=== PATIENT | female | born 1970 | race Caucasian/White ===

== ENCOUNTER → 2017-04-19 | Outpatient (CLI) | payer BC ==
[2017-04-19 07:51] LABS: HEMOGLOBIN A1C 5.91 % (4.2-6.0)
[2017-04-19 08:00] LABS: CHOL/HDL RATIO 4.14 RATIO (0-4.0); LDL CHOLESTEROL,CALCULATED 48.2 mg/dL
== END ==
LOC: LAB 07:16
PROVIDERS: ATTEND Pediatrics Pediatric Endocrinology
DX: E03.9 Hypothyroidism, unspecified (principal); R63.5 Abnormal weight gain; E55.9 Vitamin D deficiency, unspecified; Z86.32 Personal history of gestational diabetes
CPT/HCPCS: 36415; 80061; 82306; 83036; 84439; 84443; 84481

== ENCOUNTER 2017-06-30 11:40 | Inpatient (IN) ==
--- NOTE | 2017-06-30 12:20 | PDOC ---
Abdomen/Flank HPI - General Chief Complaint: Abdomen Pain Stated Complaint: left lower quad pain Date Seen by Provider: 06/30/17 Time Seen by Provider: 12:10 Source: POSITIVE: Patient Exam Limitations: POSITIVE: No limitations Nurse's Notes Reviewed & Considered: Yes - History of Present Illness Initial Comments: Patient comes in today with left lower quadrant abdominal pain. Patient has a history of repeated episodes of diverticulitis in her left lower quadrant requiring antibiotics. On Sunday she began to develop pain in her left lower quadrant and by Sunday she developed nausea but has had no vomiting and no diarrhea. Last night she developed chills and a subjective fever. Her pain has intensified and she sought evaluation at the medical office building today. The [place] he directed her to the emergency department. She has an associated headache, denies sore throat, denies chest pain, no shortness of breath, no cough, she does have nausea but no vomiting and no diarrhea. She denies any urinary symptoms with no hematuria or dysuria, no increased frequency of urination. She does have complaints of left lower quadrant abdominal pain and abdominal distention. She denies any rashes. She states she only wants antibiotics and was reluctant to agree to an IV, lab draw, or CT scan. I explained to her the need for these investigative adjuncts. She has agreed to proceed. Body Location Affected: REPORTS: Abdomen (Left lower quadrant) Timing: REPORTS: Gradual, Getting Worse Duration: <1 week Severity: Severe Quality: REPORTS: Cramping, "Pain", Sharpness, Stabbing, Throbbing, Tenderness Abdominal Pain Onset Location: REPORTS: RLQ Abdominal Pain Radiation: REPORTS: No radiation Context: REPORTS: None Modifying Factors: improves with: Nothing Associated Symptoms: REPORTS: Chills, Fever (Subjective), Nausea Similar Symptoms Previously: Yes Recent Care Received: REPORTS: Denies Any Prior Injuries Related to Current Complaint?: No - Patient Home Medications Home Medications: Home Medications Cholecalciferol (Vitamin D3) [Vitamin D3] 1 tab PO QD tab 04/17/16 Magnesium Oxide [Magnesium] 1,000 mg PO QD cap 04/17/16 Estradiol 1 tab PO DAILY #30 tab 05/01/17 Thyroid,Pork [[place] Thyroid] 1 tab PO QD #27 tab 05/02/17 Thyroid,Pork [[place] Thyroid] 1 tab PO QD #30 tab 05/02/17 Thyroid,Pork [[place] Thyroid] 1 tab PO QD #27 tab 05/21/17 Thyroid,Pork [[place] Thyroid] 1 tab PO QD #30 tab 05/21/17 - Patient Allergies Allergies/Adverse Reactions: Allergies 3 Allergy/AdvReac Type Severity Reaction Status Date / Time No Known Allergies Allergy Unverified 01/13/17 10:38 Past Medical History - heen HEENT History: Denies History Cardiovascular History: Denies History Respiratory History: Denies History Gastrointestinal History: Diverticulitis, Peptic Ulcer Disease Additional Gastrointestinal History: ABDOMINAL PAIN Genitourinary History: Recurrent UTI Additional Genitourinary History: NONE FOR 5 MONTHS OR MORE/UTI Endocrine History: Hypothyroidism Musculoskeletal History: Denies History Prosthesis or Implant: No Neurological History: Migraines Additional Neurological History: USUALLY TAKES OTC Blood Disorders: Denies History Psychiatric History: Depression History of Sexually Transmitted Diseases: No Cancer History: Denies History In Past Year Been Physically Harmed or Verbally Threatened: No History of MDRO: No History of Other Communicable Diseases: No Tobacco Use: Former Smoker Alcohol Use: Rarely In the Past 12 Months, Have Used or Abuse Any Substance: None Previous Surgical History: Yes Type / Date of Surgery: HYST/ TONSILLECTOMY/ FOOT SX Anesthesia Reactions: No Malignant Hyperthermia: No Significant Family History: No pertinent family hx Additional Family History: MOTHER HAD CERVICAL CA, PERITONEAL CA, FATHER HAD CHF ROS - Limitations ROS Limitations: No Limitations Constitution: REPORTS: Chills, Fever (Subjective) Cardiovascular: REPORTS: Denies Cardiac Symptoms Respiratory: REPORTS: Denies Resp Symptoms Neurological: REPORTS: Headache Gastrointestinal: REPORTS: Abdominal Pain, Nausea Endocrine: REPORTS: Denies Symptoms Musculoskeletal: REPORTS: Denies MS Symptoms Genitourinary: REPORTS: Denies Symptoms Eyes: REPORTS: Denies Symptoms ENT: REPORTS: Denies Symptoms Skin: REPORTS: Denies Skin Symptoms Lympathic: REPORTS: Denies Lympathic Symptoms Immunologic: POSITIVE: Denies Symptoms Psychiatric: POSITIVE: Denies Psych Symptoms Abdominal/Flank Pain PE - General Appearance General Appearance: POSITIVE: Alert, Cooperative, No Acute Distress, No Evidence of Trauma - HEENT HEENT: POSITIVE: Head Inspection Nml, Eyes Inspection Nml, Ears Inspection Nml, Nose Inspection Nml, Oral/Dental Inspect. Nml, Pharynx Inspect. Nml, PERRL, EOMI - Neck Neck: POSITIVE: Normal Inspection, No Apparent Injury - Respiratory Respiratory: POSITIVE: No Respiratory Distress, Breath Sounds Normal, Chest Non- Tender - Cardiovascular Cardiovascular: POSITIVE: Regular Rate and Rhythm, Heart Sounds Normal, Strong Pulses Peripheral Pulses: Radial (R): 4+ - Chest Chest: POSITIVE: Non Tender - Abdomen Abdomen: Soft: (All Quadrants), Denies Tenderness: (RUQ), (LUQ), (RLQ), No Splenomegaly: (All Quadrants), No Hepatomegaly: (All Quadrants), No Guarding: ( RLQ), (LUQ), (RUQ), No Rebound: (All Quadrants), No Palpable Pulse: (All Quadrants), No Palpabale Mass: (All Quadrants), No Distention: (LUQ), (RUQ), No Rigidity: (All Quadrants), Tenderness Noted: (LLQ), Hypoactive Bowel Sounds: ( All Quadrants), Distention: (LLQ), (RLQ), Guarding: (LLQ) - Back Back: POSITIVE: Normal Inspection - Skin Skin: POSITIVE: Intact, Normal For Race, Warm, Dry, No Rash - Extremities Extremity: Non-Tender: (All Extremities), Normal ROM: (All Extremities), Normal Inspection: (All Extremities), Pelvis Stable: (All Extremities) - Neurological Neurological: POSITIVE: Oriented X3, plate painter Normal As Tested, Motor Normal, Sensation Normal, 5, 6 - Psychological Psychiatric: POSITIVE: Affect Appropriate, Mood Appropriate Abdomen Progress - Results Reviewed by me Xrays/CTs/US Reviewed by me: Yes Discussed with Radiologist: Yes Lab Results Reviewed by Me: Yes CBC and BMP: 06/30/17 12:20 06/30/17 12:20 - Patient's Progress Pain Medication Addressed: POSITIVE: Yes Re-examine Time: 15:05 Status: POSITIVE: Improved - Consult Consult (If Yes, Name of Consulting MD & Time Called): Yes (Dr. Walton, 15:00 hrs) Consulting MD will see pt:: POSITIVE: [facility] [place] Admit Counseled: POSITIVE: Patient, RE: Lab Results, RE: Radiology Results, RE: DX Patient Care Time - Estimated PCT Patient Care Time (In Minutes): 45 Vital Signs - Recent Vital Signs Vital Signs: Vital Signs (Last 8 hours) Temp Pulse Resp BP Pulse Ox 06/30/17 12:01 98.1 F 104 H 16 123/99 95 - VS Reviewed Vital Signs Reviewed: Yes Discharge Clinical Impression: Diverticulitis Discharge Disposition: Admit to Observation Condition: Stable Patient Instructions Given at Discharge: Diverticulitis (ED) Follow Up With: BETINA SAENZ [Primary Care Provider] - Date Decision to Admit to Inpatient: 06/30/17 Time Decision to Admit to Inpatient: 15:06
[2017-06-30] MEDS ORDERED: MORPHINE SULFATE 4 MG/1 ML IVP ONE (12:21)
[2017-06-30] MEDS ORDERED: ONDANSETRON 4 MG/2 ML VIAL IVP ONE (12:21)
[2017-06-30] MEDS ORDERED: Sodium Chloride 0.9% 1,000 ML PRIMARY IV ONE (12:21)
[2017-06-30 12:32] LABS: BASOPHILS # (AUTO) 0.03 10*3/UL; BASOPHILS % (AUTO) 0.2 % (0-1); EOSINOPHILS # (AUTO) 0.03 10*3/UL; EOSINOPHILS % (AUTO) 0.2 % (0-8); Hemoglobin [HGB] 14.7 g/dL (12.0-16.0); LYMPHOCYTES # (AUTO) 2.06 10*3/uL; MEAN CORPUSCULAR HEMOGLOBIN 31.3 PG (27-31); MEAN CORPUSCULAR HGB CONC 34.2 g/dL (33-37); MEAN CORPUSCULAR VOLUME 91.5 FL (81-99); MEAN PLATELET VOLUME 10.2 FL (7.4-12.2); MONOCYTES # (AUTO) 1.25 10*3/UL (0.3-0.8); MONOCYTES % (AUTO) 8.2 % (5-15); NEUTROPHILS # (AUTO) 11.75 10*3/UL; NEUTROPHILS % (AUTO) 77.3 % (50-80)
[2017-06-30 12:35] LABS: PLATELET MORPHOLOGY COMMENT NORMAL MORPHOLOGY (NORM); RBC MORPHOLOGY COMMENT NORMAL MORPHOLOGY (NORM); WBC MORPHOLOGY COMMENT NORMAL MORPHOLOGY (NORM)
[2017-06-30 12:43] LABS: BLOOD UREA NITROGEN 8 mg/dL (7-22); BUN/CREATININE RATIO 11.42 (6-20); MAGNESIUM 1.9 mg/dL (1.6-2.4); SERUM ALBUMIN 4.3 g/dL (3.5-4.8)
[2017-06-30] MEDS ORDERED: metroNIDAZOLE 500mg (Premix) 500 MG/100 ML BAG IV ONE (14:19)
[2017-06-30] MEDS ORDERED: Levofloxacin (Premix) 750 MG/150 ML PIGGYBACK IV ONE (14:20)
--- NOTE | 2017-06-30 14:53 | DI ---
EXAM: CT ABDOMEN PELVIS WITH CONTRAST INDICATION: Left lower quadrant pain and guarding TECHNIQUE: Multiple, contiguous 3 mm axial cuts of the abdomen and pelvis are obtained from the lung bases to the ischial tuberosities. 75 cc [id number] Intravenous contrast administered. Sagittal and coronal reformatted images are available. COMPARISON: CT abdomen pelvis 02/16/15 FINDINGS: Lung bases are clear. Liver: liver is unremarkable. Spleen: spleen is unremarkable. Pancreas: pancreas is unremarkable. Gallbladder: Gallbladder is unremarkable by CT exam. Adrenal glands: adrenal glands are unremarkable. Kidneys: kidneys are unremarkable. No urinary tract stones or hydronephrosis or perinephric inflammatory changes. GI tract: Diverticulosis of the descending and sigmoid colon. There is pericolonic inflammatory changes at the descending colon and proximal sigmoid with thickened wall. Additional few scattered diverticula of the transverse and right colon. Trace free fluid. No free air or abscess or bowel obstruction. Appendix: Appendix normal caliber. Urinary bladder: urinary bladder is unremarkable. Abdominal aorta: Abdominal aorta normal caliber. Retroperitoneum. No adenopathy. Osseous structures: No acute osseous abnormality. L5/S1 degenerative disc space narrowing and vacuum disc phenomenon with endplate degenerative osteophyte formation. Mild facet arthropathy L4/L5 and L5/S1. L4/L5 mild to moderate degenerative disc space narrowing. Hysterectomy. No adnexal lesions. IMPRESSION: 1. Diverticulitis of the descending and proximal sigmoid colon with trace adjacent free fluid. No free air or abscess or bowel obstruction. 2. Hysterectomy. 3. Degenerative changes lower lumbar spine at L4/L5 and L5/S1 level. No acute osseous abnormality. 4. Additional scattered diverticula in the transverse and ascending colon noted.
--- NOTE | 2017-06-30 15:06 | PDOC ---
HPI - History of Present Illness History of Present Illness: This very nice 47-year-old female with past medical history significant for hypothyroidism. Patient also has a history significant for repeated the house of diverticulitis treated the as an outpatient with antibiotics. Last Sunday he started developing some pain in the left lower quadrant by Sunday she had some nausea but no vomiting. Last evening she developed some chills and fever according to the patient with increased pain was seen at the outpatient clinic who sent her to the emergency room CT scan revealed the diverticulitis. Patient agreed to be admitted to the hospital Past Medical History Medical History: Hypothyroidism, multiple episodes of diverticulitis Tobacco Use: Former Smoker In the Past 12 Months, Have Used or Abuse Any of the Following Substance: None Alcohol Use: None Medication / Allergies Home Medications: Home Medications Medication Instructions Recorded Confirmed Type Cholecalciferol (Vitamin D3) 1 tab PO QD tab 04/17/16 History [Vitamin D3] Magnesium Oxide [Magnesium] 1,000 mg PO QD cap 04/17/16 History Estradiol 1 tab PO DAILY #30 tab 05/01/17 Rx Thyroid,Pork [[place] Thyroid] 1 tab PO QD #27 tab 05/02/17 Clinic Thyroid,Pork [[place] Thyroid] 1 tab PO QD #30 tab 05/02/17 Clinic Thyroid,Pork [[place] Thyroid] 1 tab PO QD #27 tab 05/21/17 Clinic Thyroid,Pork [[place] Thyroid] 1 tab PO QD #30 tab 05/21/17 Clinic Allergies/Adverse Reactions: Allergies 3 Allergy/AdvReac Type Severity Reaction Status Date / Time No Known Allergies Allergy Unverified 01/13/17 10:38 Review of Systems - Review of Systems All Systems: Reviewed & No Additional Complaints Except as Stated - Respiratory Respiratory: DENIES: Negative System Review, Cough, Sputum, Dyspnea At Rest, Dyspnea with Exertion, Pleuritic Pain, Hemoptysis, Wheezing, Other, See HPI - Cardiovascular Cardiovascular: DENIES: Negative System Review, Chest Pain, Edema, Syncope, Palpitations, Orthopnea, Paroxysmal Nocturnal Dyspnea, Other, See HPI - Gastrointestinal Gastrointestinal / Abdominal: REPORTS: Nausea, Vomiting, Abdominal Pain Exam - Vitals Vital Signs: Vital Signs Temperature 98.1 F Pulse Rate [Pulse Oximeter] 104 Respiratory Rate 16 Blood Pressure [Left Arm] 123/99 Pulse Ox 95 Oxygen Delivery Method Room Air Height 5 ft 8 in Weight 205 lb - General General Appearance: No Acute Distress, Cooperative - Head Head Exam: Normal Inspection - Eye Eye Exam: POSITIVE: Normal Appearance - Respiratory Respiratory Exam: POSITIVE: Clear to Auscultation - Bilaterally, Breathing Non Labored, Normal To Percussion - Cardiovascular Cardiovascular Exam: POSITIVE: RRR, No Murmur, No Clicks - GI/Abdominal Additional GI/Abdominal Exam Details: Left lower quadrant pain no guarding or rebound - Extremities Extremities Exam: POSITIVE: No Clubbing Present, No Edema Present, No Cyanosis Present Results - Labs CBC and BMP: 06/30/17 12:20 06/30/17 12:20 Assessment and Plan - Patient Problems (1) Diverticulitis Current Visit: Yes Status: Acute Comment: Diverticulitis on CT scan admit the patient start IV Invanz Dr. Gonsales was consult with by ER physician is he did not think that he needed to be involved in the case at this time and just the to call him if any complications Code(s): K57.92 - Diverticulitis of intestine, part unspecified, without perforation or abscess without bleeding
[2017-06-30] MEDS ORDERED: ONDANSETRON 4 MG/2 ML VIAL IVP PRN (16:05)
[2017-06-30] MEDS ORDERED: NORMAL SALINE 10 ML SYRINGE FLUSH IVP PRN (16:05)
[2017-06-30] MEDS ORDERED: MAGNESIUM OXIDE 1000 MG PO SCH (16:05)
[2017-06-30] MEDS ORDERED: CHOLECALCIFEROL 1000 IU TABLET PO SCH (16:05)
[2017-06-30] MEDS ORDERED: LIDOCAINE W/ SODIUM BICARB 0.5 ML SYR SUBD PRN (16:05)
[2017-06-30] MEDS ORDERED: MORPHINE SULFATE 2 MG/1 ML IVP PRN (16:05)
[2017-06-30] MEDS ORDERED: MAG HYDROX/AL HYDROX/SIMETH 30 ML SUSP PO PRN (16:05)
[2017-06-30] MEDS: 1/2NS + 20mEq KCL 1,000 ML PRIMARY IV SCH (17:35)
[2017-06-30] MEDS: Ertapenem Inj 1 GM in Sodium Chloride 0.9% 100 ML IV SCH (21:08)
[2017-06-30] MEDS: HEPARIN 5000 UNIT/1 ML SUBCUT SCH (21:09)
[2017-06-30] MEDS: ACETAMINOPHEN 325 MG TABLET PO PRN (22:13)
[2017-07-01] MEDS: 1/2NS + 20mEq KCL 1,000 ML PRIMARY IV SCH ×3 (01:40→20:51)
[2017-07-01] MEDS: HEPARIN 5000 UNIT/1 ML SUBCUT SCH ×3 (04:28→21:04)
[2017-07-01 05:32] LABS: BASOPHILS # (AUTO) 0.02 10*3/UL; BASOPHILS % (AUTO) 0.2 % (0-1); EOSINOPHILS # (AUTO) 0.05 10*3/UL; EOSINOPHILS % (AUTO) 0.4 % (0-8); Hematocrit [HCT] 39.1 % (37.0-47.0); Hemoglobin [HGB] 12.8 g/dL (12.0-16.0); LYMPHOCYTES # (AUTO) 2.34 10*3/uL; MEAN CORPUSCULAR HEMOGLOBIN 30.2 PG (27-31); MEAN CORPUSCULAR HGB CONC 32.7 g/dL (33-37); MEAN CORPUSCULAR VOLUME 92.2 FL (81-99); MEAN PLATELET VOLUME 10.7 FL (7.4-12.2); MONOCYTES # (AUTO) 1.13 10*3/UL (0.3-0.8); MONOCYTES % (AUTO) 9.8 % (5-15); NEUTROPHILS # (AUTO) 7.96 10*3/UL; RED BLOOD COUNT 4.24 10^6/uL (4.20-5.40)
[2017-07-01 05:34] LABS: PLATELET MORPHOLOGY COMMENT NORMAL MORPHOLOGY (NORM); RBC MORPHOLOGY COMMENT NORMAL MORPHOLOGY (NORM); WBC MORPHOLOGY COMMENT NORMAL MORPHOLOGY (NORM)
[2017-07-01 05:41] LABS: BLOOD UREA NITROGEN 6 mg/dL (7-22); BUN/CREATININE RATIO 8.57 (6-20); LIPASE 41 IU/L (23-300); SERUM ALBUMIN 3.6 g/dL (3.5-4.8)
[2017-07-01] MEDS: THYROID PORK 90 MG PO SCH (07:48)
[2017-07-01] MEDS ORDERED: ESTRADIOL PO SCH (09:00)
[2017-07-01] MEDS: CHOLECALCIFEROL 1000 IU TABLET PO SCH (09:05)
[2017-07-01] MEDS: ESTRADIOL 1 MG PO SCH (09:06)
[2017-07-01] MEDS: MAGNESIUM OXIDE 1000 MG PO SCH (09:06)
[2017-07-01] MEDS: ACETAMINOPHEN 325 MG TABLET PO PRN (13:32)
[2017-07-01] MEDS ORDERED: KETOROLAC 15 MG/1 ML VIAL IVP PRN (14:40)
--- NOTE | 2017-07-01 17:45 | PDOC(PROG) ---
Date and Time of Service: 07/01/2017, 1741 Interval History: Patient seen and evaluated earlier today. Abdominal pain significantly improved. Mostly located in the left lower quadrant and above the bladder. No nausea or vomiting, and tolerating clear liquids thus far. No chest pain and no shortness of breath. Objective : Data - Labs CBC and BMP: 07/01/17 04:30 07/01/17 04:30 Objective : Exam - General General Appearance: No Acute Distress, Cooperative Additional General Exam Details: Vital Signs - Last Taken Temperature 98 F 07/01/17 16:41 Pulse Rate 72 07/01/17 16:41 Respiratory Rate 17 07/01/17 16:41 Blood Pressure 119/68 07/01/17 16:41 Pulse Ox 91 07/01/17 16:41 - Eye Eye Exam: No Scleral Icterus - ENT ENT Exam: Mucous Membranes Moist - Respiratory Respiratory Exam: Clear to Auscultation - Bilaterally, Breathing Non Labored - Cardiovascular Cardiovascular Exam: RRR, No Murmur, No Clicks, No Gallops, No Rubs, No JVD - GI/Abdominal GI/Abdominal Exam: Normal Bowel Sounds, Non Distended, Soft Additional GI/Abdominal Exam Details: Left lower quadrant tenderness to palpation - Extremities Extremities Exam: No Clubbing Present, No Edema Present, No Cyanosis Present - Neurological Neurological Exam: Alert, Oriented x 3, No Facial Droop, Speech Intact / Clear, Moves All Extremities Equally - Psychiatric Psychiatric Exam: Normal Affect, Normal Mood Assessment and Plan - Patient Problems (1) Diverticulitis Current Visit: Yes Status: Acute Code(s): K57.92 - Diverticulitis of intestine, part unspecified, without perforation or abscess without bleeding Qualifiers: Diverticulitis site: large intestine Diverticulitis bleeding: without bleeding Diverticulitis complication: without perforation or abscess Qualified Code(s): K57.32 - Diverticulitis of large intestine without perforation or abscess without bleeding (2) Hypothyroidism Current Visit: Yes Status: Acute Code(s): E03.9 - Hypothyroidism, unspecified Qualifiers: Hypothyroidism type: acquired Qualified Code(s): E03.9 - Hypothyroidism, unspecified - Assessment / Plan Additional Assessment/Plan Details: Continue antibiotics, Invanz, day #2. Consider Augmentin by mouth tomorrow if patient still tolerating diet and pain improved. Given continued left lower quadrant pain, albeit better, I think the benefit of remaining on a clear liquid diet probably outweighs the risk of advancing it at this point. Continue IV fluids, if patient feels better tomorrow, advance diet tomorrow. Check CBC in the morning. I strongly recommended that the patient see a surgeon outpatient to consider colonoscopy to help stage and plan for any elective procedures down the road to prevent diverticulitis in the future.
[2017-07-01] MEDS: Ertapenem Inj 1 GM in Sodium Chloride 0.9% 100 ML IV SCH (20:52)
[2017-07-02] MEDS: THYROID PORK 90 MG PO SCH ×2 (04:30→06:31)
[2017-07-02] MEDS: HEPARIN 5000 UNIT/1 ML SUBCUT SCH (04:50)
[2017-07-02] MEDS: 1/2NS + 20mEq KCL 1,000 ML PRIMARY IV SCH (04:51)
[2017-07-02 05:41] LABS: BASOPHILS # (AUTO) 0.02 10*3/UL; BASOPHILS % (AUTO) 0.2 % (0-1); EOSINOPHILS # (AUTO) 0.07 10*3/UL; EOSINOPHILS % (AUTO) 0.8 % (0-8); Hemoglobin [HGB] 13.3 g/dL (12.0-16.0); LYMPHOCYTES # (AUTO) 1.93 10*3/uL; MEAN CORPUSCULAR HEMOGLOBIN 30.6 PG (27-31); MEAN CORPUSCULAR HGB CONC 33.3 g/dL (33-37); MEAN PLATELET VOLUME 10.5 FL (7.4-12.2); MONOCYTES # (AUTO) 0.66 10*3/UL (0.3-0.8); MONOCYTES % (AUTO) 7.3 % (5-15); NEUTROPHILS % (AUTO) 70.1 % (50-80); RED BLOOD COUNT 4.35 10^6/uL (4.20-5.40)
[2017-07-02 05:53] LABS: PLATELET MORPHOLOGY COMMENT NORMAL MORPHOLOGY (NORM); RBC MORPHOLOGY COMMENT NORMAL MORPHOLOGY (NORM); WBC MORPHOLOGY COMMENT NORMAL MORPHOLOGY (NORM)
[2017-07-02] MEDS: CHOLECALCIFEROL 1000 IU TABLET PO SCH (08:46)
[2017-07-02] MEDS: MAGNESIUM OXIDE 1000 MG PO SCH (08:46)
[2017-07-02] MEDS: ESTRADIOL 1 MG PO SCH (08:47)
[2017-07-02] MEDS ORDERED: Ertapenem Inj 0.5 GM in Sodium Chloride 0.9% 100 ML IV ONE (11:23)
[2017-07-02 11:31] VITALS: BP 131/75; RESP 18; TEMP 98.2; O2SAT 96
--- NOTE | 2017-07-02 11:44 | DCSUMMARY ---
Hospitalization Summary Admit Date: 06/30/17 Discharge Date: 07/02/17 Primary Diagnosis:: diverticulitis Hospital Course: This 47-year-old female who came in with abdominal pain of fairly acute onset, accompanied with nausea and CT scan showed evidence of diverticulitis. Patient is a prior diverticular bouts but has been fairly noncompliant terms of her follow-up for colonoscopy post diverticular infections in the past. The patient was admitted, after dose of Levaquin and Flagyl in the emergency room, placed on Invanz. She has had 3 doses of Invanz prior to discharge. Her abdominal pain resolved and her diet was able to be advanced to a regular diet. Her pain has significantly resolved. She is not requiring opiates for her pain. She denies any chest pain, short is breath, vomiting, and states that her abdominal pain is significantly better on the date of discharge. We did speak with surgery who will see patient in the clinic for follow-up. Other medical issues did not cause problems during hospital stay. Assessment and Plan: 1. As per discharge assessments noted 2. Disposition: Patient is discharged home. 3. Condition on discharge, stable and improved. 4. Diet: regular diet 5. Activities: resume normal activities 6. Follow-Up: 1. See Dorota Jacobs in 1 week for recheck 2. See Dr. Gonsales in 2 weeks to recheck diverticulitis. 7. Medications at the Time of Discharge: Home Medications Medication Instructions Recorded Confirmed Type Cholecalciferol (Vitamin D3) 1 tab PO QD tab 04/17/16 07/01/17 History [Vitamin D3] Magnesium Oxide [Magnesium] 1,000 mg PO QD cap 04/17/16 07/01/17 History Estradiol 1 tab PO DAILY #30 tab 05/01/17 07/01/17 Rx Thyroid,Pork [[place] Thyroid] 1 tab PO QD #27 tab 05/02/17 Clinic Thyroid,Pork [[place] Thyroid] 1 tab PO QD #30 tab 05/02/17 Clinic Thyroid,Pork [[place] Thyroid] 1 tab PO QD #27 tab 05/21/17 07/01/17 Clinic Thyroid,Pork [[place] Thyroid] 1 tab PO QD #30 tab 05/21/17 07/01/17 Clinic Amoxicillin/Potassium Clav 1 ea PO BID #14 tab 07/02/17 Rx [Augmentin 875-125 Tablet] 8. Time, care, counseling and coordination of care for this discharge is less than 30 minutes. Exam - Vitals Vital Signs: Vital Signs Temperature 98.2 F Temperature Source Temporal Artery Scan Pulse Rate [Apical] 84 Pulse Rate [Pulse Oximeter] 80 Respiratory Rate 18 Blood Pressure [Right Arm] 131/75 Blood Pressure [Left Arm] 140/81 Pulse Ox 96 Oxygen Delivery Method Room Air Height 5 ft 8 in Weight 216 lb - General General Appearance: No Acute Distress, Cooperative - Eye Eye Exam: POSITIVE: No Scleral Icterus - ENT ENT Exam: POSITIVE: Mucous Membranes Moist - Respiratory Respiratory Exam: POSITIVE: Clear to Auscultation - Bilaterally, Breathing Non Labored - Cardiovascular Cardiovascular Exam: POSITIVE: RRR, No Murmur, No Clicks, No Gallops, No Rubs, No JVD - GI/Abdominal GI/Abdominal Exam: POSITIVE: Normal Bowel Sounds, Non Tender, Non Distended, Soft Additional GI/Abdominal Exam Details: Tenderness in left lower quadrant improved today. - Extremities Extremities Exam: POSITIVE: No Clubbing Present, No Edema Present, No Cyanosis Present - Neurological Neurological Exam: POSITIVE: Alert, Oriented x 3, Normal Gait, No Facial Droop, Speech Intact / Clear, Moves All Extremities Equally - Psychiatric Psychiatric Exam: POSITIVE: Normal Affect, Normal Mood Data Perinent Studies: Laboratory Results 06/30/17 06/30/17 06/30/17 Range/Units 12:20 12:20 12:20 WBC 15.19 H (4.8-10.8) 10^3/uL RBC 4.70 (4.20-5.40) 10^6/uL Hgb 14.7 (12.0-16.0) g/dL Hct 43.0 (37.0-47.0) % MCV 91.5 (81-99) FL MCH 31.3 H (27-31) PG MCHC 34.2 (33-37) g/dL RDW Std Deviation 40.6 (39-50) fL RDW Coeff of Ana Laura 12.4 (11.5-14.5) % Plt Count 326 (140-350) 10*3/uL MPV 10.2 (7.4-12.2) FL Immature Gran % (Auto) 0.5 (0-5) % Neut % (Auto) 77.3 (50-80) % Lymph % (Auto) 13.6 (10-50) % [place] % (Auto) 8.2 (5-15) % Eos % (Auto) 0.2 (0-8) % Baso % (Auto) 0.2 (0-1) % Immature Gran # (Auto) 0.07 10*3/UL Neut # (Auto) 11.75 10*3/UL Lymph # (Auto) 2.06 10*3/uL [place] # (Auto) 1.25 H (0.3-0.8) 10*3/UL Eos # (Auto) 0.03 10*3/UL Baso # (Auto) 0.03 10*3/UL WBC Morphology Comment Normal morphology (NORM) Plt Morphology Comment Normal morphology (NORM) RBC Morph Comment Normal morphology (NORM) Sodium 141 (135-145) meq/L Potassium 3.9 (3.8-5.2) meq/L Chloride 105 (98-112) meq/L Carbon Dioxide 25 (23-33) meq/L Anion Gap 11 (5-20) BUN 8 (7-22) mg/dL Creatinine 0.7 (0.50-1.20) mg/dL Estimated GFR > 60 (>60 ml/min/1.73m(2)) BUN/Creatinine Ratio 11.42 (6-20) Glucose 106 (78-110) mg/dL Calculated Osmolality 289.0 (267-292) mOsm/kg Lactic Acid 0.9 (0.70-2.10) MMOL/L Calcium 9.3 (8.7-10.7) mg/dL Magnesium 1.9 (1.6-2.4) mg/dL Total Bilirubin 1.0 (0.3-1.2) mg/dL AST 27 (8-39) IU/L ALT 63 H (9-52) IU/L Alkaline Phosphatase 118 (38-126) IU/L Total Protein 7.5 (6.1-8.0) g/dL Albumin 4.3 (3.5-4.8) g/dL Globulin 3.2 (2.50-4.10) g/dL Albumin/Globulin Ratio 1.30 (1.3-2.0) mg/g Amylase (30-110) U/L Lipase (23-300) IU/L 07/01/17 07/01/17 07/02/17 Range/Units 04:30 04:30 04:25 WBC 11.54 H 9.00 (4.8-10.8) 10^3/uL RBC 4.24 4.35 (4.20-5.40) 10^6/uL Hgb 12.8 13.3 (12.0-16.0) g/dL Hct 39.1 40.0 (37.0-47.0) % MCV 92.2 92.0 (81-99) FL MCH 30.2 30.6 (27-31) PG MCHC 32.7 L 33.3 (33-37) g/dL RDW Std Deviation 40.8 40.9 (39-50) fL RDW Coeff of Ana Laura 12.3 12.3 (11.5-14.5) % Plt Count 278 318 (140-350) 10*3/uL MPV 10.7 10.5 (7.4-12.2) FL Immature Gran % (Auto) 0.3 0.2 (0-5) % Neut % (Auto) 69.0 70.1 (50-80) % Lymph % (Auto) 20.3 21.4 (10-50) % [place] % (Auto) 9.8 7.3 (5-15) % Eos % (Auto) 0.4 0.8 (0-8) % Baso % (Auto) 0.2 0.2 (0-1) % Immature Gran # (Auto) 0.04 0.02 10*3/UL Neut # (Auto) 7.96 6.30 10*3/UL Lymph # (Auto) 2.34 1.93 10*3/uL [place] # (Auto) 1.13 H 0.66 (0.3-0.8) 10*3/UL Eos # (Auto) 0.05 0.07 10*3/UL Baso # (Auto) 0.02 0.02 10*3/UL WBC Morphology Comment Normal morphology Normal morphology (NORM) Plt Morphology Comment Normal morphology Normal morphology (NORM) RBC Morph Comment Normal morphology Normal morphology (NORM) Sodium 139 (135-145) meq/L Potassium 3.9 (3.8-5.2) meq/L Chloride 109 (98-112) meq/L Carbon Dioxide 21 L (23-33) meq/L Anion Gap 9 (5-20) BUN 6 L (7-22) mg/dL Creatinine 0.7 (0.50-1.20) mg/dL Estimated GFR > 60 (>60 ml/min/1.73m(2)) BUN/Creatinine Ratio 8.57 (6-20) Glucose 98 (78-110) mg/dL Calculated Osmolality 285.0 (267-292) mOsm/kg Lactic Acid (0.70-2.10) MMOL/L Calcium 8.8 (8.7-10.7) mg/dL Magnesium (1.6-2.4) mg/dL Total Bilirubin 0.8 (0.3-1.2) mg/dL AST 20 (8-39) IU/L ALT 46 (9-52) IU/L Alkaline Phosphatase 98 (38-126) IU/L Total Protein 6.4 (6.1-8.0) g/dL Albumin 3.6 (3.5-4.8) g/dL Globulin 2.9 (2.50-4.10) g/dL Albumin/Globulin Ratio 1.20 L (1.3-2.0) mg/g Amylase 44 (30-110) U/L Lipase 41 (23-300) IU/L [address] [facility] [place] [id number] PH: [phone] [phone] ~DIAGNOSTIC IMAGING REPORT~ Patient: NAVID FERRARI : 1970 Sex: F Age: 47 Exam Name: CT Abdomen/Pelvis W Contrast Exam Date: 06/30/17 Report # : [id number] CPT Code: 31351 EMR/MR #: [id number] Ordering: Haja Burrell Admiting: MEET ZARAGOZA MD. Primary: Jacqui Jacobs MS, ENROBER Attending: MEET ZARAGOZA MD. Signed EXAM: CT ABDOMEN PELVIS WITH CONTRAST INDICATION: Left lower quadrant pain and guarding TECHNIQUE: Multiple, contiguous 3 mm axial cuts of the abdomen and pelvis are obtained from the lung bases to the ischial tuberosities. 75 cc [id number] Intravenous contrast administered. Sagittal and coronal reformatted images are available. COMPARISON: CT abdomen pelvis 02/16/15 FINDINGS: Lung bases are clear. Liver: liver is unremarkable. Spleen: spleen is unremarkable. Pancreas: pancreas is unremarkable. Gallbladder: Gallbladder is unremarkable by CT exam. Adrenal glands: adrenal glands are unremarkable. Kidneys: kidneys are unremarkable. No urinary tract stones or hydronephrosis or perinephric inflammatory changes. GI tract: Diverticulosis of the descending and sigmoid colon. There is pericolonic inflammatory changes at the descending colon and proximal sigmoid with thickened wall. Additional few scattered diverticula of the transverse and right colon. Trace free fluid. No free air or abscess or bowel obstruction. Appendix: Appendix normal caliber. Urinary bladder: urinary bladder is unremarkable. Abdominal aorta: Abdominal aorta normal caliber. Retroperitoneum. No adenopathy. Osseous structures: No acute osseous abnormality. L5/S1 degenerative disc space narrowing and vacuum disc phenomenon with endplate degenerative osteophyte formation. Mild facet arthropathy L4/L5 and L5/S1. L4/L5 mild to moderate degenerative disc space narrowing. Hysterectomy. No adnexal lesions. IMPRESSION: 1. Diverticulitis of the descending and proximal sigmoid colon with trace adjacent free fluid. No free air or abscess or bowel obstruction. 2. Hysterectomy. 3. Degenerative changes lower lumbar spine at L4/L5 and L5/S1 level. No acute osseous abnormality. 4. Additional scattered diverticula in the transverse and ascending colon noted. Dictated By: Anmol Umanzor MD Signed By: 07/02/17 0821 Anmol Umanzor MD Patient Problems - Patient Problem List (1) Diverticulitis Current Visit: Yes Status: Acute Comment: sigmoid diverticulitis Code(s): K57.92 - Diverticulitis of intestine, part unspecified, without perforation or abscess without bleeding Qualifiers: Diverticulitis site: large intestine Diverticulitis bleeding: without bleeding Diverticulitis complication: without perforation or abscess Qualified Code(s): K57.32 - Diverticulitis of large intestine without perforation or abscess without bleeding Category: Medical (2) Hypothyroidism Current Visit: Yes Status: Acute Code(s): E03.9 - Hypothyroidism, unspecified Qualifiers: Hypothyroidism type: acquired Qualified Code(s): E03.9 - Hypothyroidism, unspecified Category: Medical
== END 2017-07-02 12:58 | disposition home or self-care (01) | DRG 392 ==
LOC: ER 11:40 → MED/SURG 14:58
PROVIDERS: ADMIT Internal Medicine; ATTEND Internal Medicine